=== PATIENT | female | born 1965 | race Caucasian/White ===

== ENCOUNTER 2025-04-26 06:45 | Day surgery (SDC) | payer MEDICAID ==
[~2025-04-26 06:45] MED LIST: Sodium Chloride 0.9% 10 ML Syringe FLUSH PRN; Sodium Chloride 0.9% 10 ML Syringe FLUSH SCH
[2025-04-26] MEDS: Lactated Ringers 1,000 ML IV SCH (07:20)
[2025-04-26] MEDS: oxyCODONE ER 10 MG TAB.ER PO SCH (07:30)
[2025-04-26] MEDS ORDERED: dexmedeTOMIDine HCl 200 MCG/2 ML SDV ONE (07:44)
[2025-04-26] MEDS ORDERED: propofoL 500 MG/50 ML 50 ML ONE (07:44)
[2025-04-26] MEDS ORDERED: Midazolam 1 MG/ML 2 ML SDV ONE (07:45)
[2025-04-26] MEDS ORDERED: Ondansetron 4 MG/2 ML SDV ONE (07:45)
[2025-04-26] MEDS ORDERED: ePHEDrine 50 MG/ML SDV ONE (08:18)
[2025-04-26] MEDS ORDERED: Phenylephrine 1% 10 MG/ML SDV ONE (08:21)
[2025-04-26] MEDS ORDERED: Ropivacaine 0.5% 5 MG/ML 30 ML SDV ONE (08:23)
[2025-04-26] MEDS ORDERED: Lactated Ringers 1,000 ML ONE (08:52)
[2025-04-26] MEDS: Morphine 8 MG, EPINEPHrine 0.3 MG, Cefuroxime 750 MG, Ketorolac 30 MG, Sodium Chloride ... PRN (09:11)
[2025-04-26] MEDS: Triamcinolone Acetonide 40 MG/ML 1 ML SDV ONE (09:30)
[2025-04-26] MEDS: Ondansetron 4 MG/2 ML SDV IVPUSH ONE (12:19)
== END 2025-04-26 13:20 | disposition home or self-care (01) ==
LOC: JD.SDS 06:45
PROVIDERS: ATTEND Orthopaedic Surgery
DX: M17.0 Bilateral primary osteoarthritis of knee (principal); K21.9 Gastro-esophageal reflux disease without esophagitis; F41.9 Anxiety disorder, unspecified; Z79.899 Other long term (current) drug therapy
CPT/HCPCS: 0055T; 20610; 27447; 64447; 73560; 97116; 97161; 97530; A9270; C1713; C1776; J0169; J0665; J0690; J0697; J1885; J2250; J2272; J2371; J2405; J2704; J2795; J3301; J3373; J7120; J3490